=== PATIENT | male | born 1945 | race American Indian/Alaskan Native ===

== ENCOUNTER 2017-04-29 11:07 | Day surgery (SDC) | payer MEDICARE ==
[~2017-04-29 11:07] MED LIST: WATER FOR IRRIG STERILE IR ONE
[2017-04-29] MEDS ORDERED: NACL 0.9% 1000 ML 1,000 ML IV SCH (12:00)
== END 2017-04-29 11:08 | disposition home or self-care (01) ==
LOC: GIO 11:07
PROVIDERS: ATTEND Internal Medicine Gastroenterology
DX: K21.9 Gastro-esophageal reflux disease without esophagitis (principal); R13.10 Dysphagia, unspecified; R12 Heartburn; Z53.8 Procedure and treatment not carried out for other reasons

== ENCOUNTER 2017-05-27 09:45 | Day surgery (SDC) | payer MEDICARE ==
[~2017-05-27 09:45] MED LIST changes: +WATER FOR IRRIG STERILE ONE
[2017-05-27] MEDS ORDERED: NACL 0.9% 1000 ML 1,000 ML IV SCH (10:00)
--- NOTE | 2017-05-27 11:33 | Anesthesia Consultation ---
Anesthesia Consult and Med Hx Date of service: 05/27/17 - Airway Anesthetic Teeth Evaluation: Poor ROM Head & Neck: Adequate Mental/Hyoid Distance: Adequate Mallampati Class: Class II Intubation Access Assessment: Probably Good - Pre-Operative Health Status ASA Pre-Surgery Classification: ASA3 Proposed Anesthetic Plan: MAC - Cardiovascular System Hx Hypertension: Yes - Central Nervous System CVA: Yes Hx Psychiatric Problems: Yes (some dementia) - Gastrointestinal Hx Gastroesophageal Reflux Disease: Yes (PEG tube in place) - Endocrine Hx Renal Disease: Yes Hx End Stage Renal Disease: No Hx Hypothyroidism: Yes - Hematic Hx Anemia: Yes - Other Systems Hx Cancer: Yes (prostate CA)
--- NOTE | 2017-05-27 11:34 | Anesthesia Day of Surgery ---
Anesthesia Day of Surgery - Day of Surgery Patient Examined: Yes Patient H&P Reviewed: Yes Patient is NPO: Yes Beta Blockers: Yes
[2017-05-27] MEDS ORDERED: DIPRIVAN 10 MG/ML IV ONE (12:34)
[2017-05-27 14:05] VITALS: BP 104/63
--- NOTE | 2017-05-27 14:09 | Post Anesthesia Evaluation ---
- Post Anesthesia Evaluation Patient Participated: Yes Airway Patent: Yes Stable Respiratory Function: Yes Nausea/Vomiting: No Temp > 96.8F: Yes Pain Manageable: Yes Adequeate Hydration: Yes Anesthesia Complications: No
--- NOTE | 2017-05-27 14:20 | Operative Report ---
Operative Report Operative Report: Date: 05/27/2017 Operative Report: Date of procedure: 05/27/2017 Procedure: Esophagogastroduodenoscopy with Foreign body removal. Attending physician: Roscoe Balderas MD Pricing Supervisor: Roscoe Balderas MD Indication: Patient is a 71 -year-old male who presented with a history of dysphagia, chest pain, recurrent epigastric pain, heartburn and indigestion. An upper endoscopy is done to assess patient, so that treatment may be directed based on the findings. Consent: Informed consent was obtained after advising the patient and family regarding nature of this procedure, its indications, potential benefits as well as possible complications including but not limited to bleeding perforation and adverse reaction to medication, infection as well as other cardiopulmonary complications. An informed written and verbal consent was then obtained after due opportunity was provided for questions and answers. Monitoring: Patient was monitored continuously with pulse oximetry and electrocardiographic recordings as well as blood pressure recordings. Vital signs remained stable throughout this procedure with no untoward events. Preoperative assessment: Patient was assessed immediately prior to this procedure for capacity to tolerate monitored anesthesia care and moderate sedation as well as general anesthesia. Patient's ASA classification is 3, Mallampati class is 2, Hyomental distance is 3. Instrument: Darby Smartn video endoscope Medications: Propofol given intravenously in divided doses. For details please refer to anesthesia records. Description of procedure: Patient was placed in the left lateral decubitus position after achieving sedation, the endoscope was introduced into the esophagus under direct vision. Immediately on entering into the esophagus, patient was noted to have substantial retained contents with retained old food and other material that was not recognizable. There were also some retained partially chewed oranges seen. Sequentially, under direct visualization, a Mcmanus net was introduced througjh the endoscope and used to grasp all the foreign body in the esophagus. Several passes were then made withdrawing and removing the foreign body and reintubating the esophagus. Patient was noted post-removal of all foreign body to have severe esophagitis. Some of this was due to stasis in the esophagus. After removing all the foreign body, it was noted that patient had a tight stricture in the distal esophagus. This probably measured approximately 1-2 millimeters in the luminal opening. A guidewire could not even be easily passed through this stricture. The procedure therefore was completed at this point. The endoscope was then removed safely. Findings: Severe esophageal stricture with substantial retained foreign body status post foreign body removal. The stomach and the duodenum could not be visualized. Impression: Retained esophageal foreign body status post removal with a Mcmanus net. Severe esophagitis partially due to stasis. Tight distal esophageal stricture. Plan: Patient should be strictly nothing by mouth for everything including clear liquids. All feeding and medications must be administered through the gastrostomy tube. If patient can successfully stay nothing by mouth for at least 3-4 weeks, then we can begin to attempt gradual esophageal dilation. All the patient has a tight esophageal stricture we cannot determine at this time if there is contribution the patient's dysphagia from anything other than mechanical stricture.
--- NOTE | 2017-05-27 14:22 | Discharge Summary ---
Short Stay Discharge Plan Activity: advance as tolerated Weight Bearing Status: Partial Weight Bearing Diet: other (Strict gastrostomy tube feeding. Patient should be strictly nothing by mouth otherwise) Follow up with: KRYS VALADEZ MD [Primary Care Provider] - 7 Days
== END 2017-05-27 09:46 | disposition home or self-care (01) ==
LOC: GIO 09:45
PROVIDERS: ATTEND Internal Medicine Gastroenterology
DX: T18.128A Food in esophagus causing other injury, initial encounter (principal); K22.2 Esophageal obstruction; K20.8 Other esophagitis; E03.9 Hypothyroidism, unspecified; I10 Essential (primary) hypertension; F03.90 Unspecified dementia, unspecified severity, without behavioral disturbance, psychotic disturbance, mood disturbance, and anxiety; Z86.73 Personal history of transient ischemic attack (TIA), and cerebral infarction without residual deficits; Z85.46 Personal history of malignant neoplasm of prostate
CPT/HCPCS: 43247; J2704; J7030